=== PATIENT | female | born 1970 | race Caucasian/White ===

== ENCOUNTER 2017-03-08 20:06 | Emergency (ER) | payer OTHER ==
[2017-03-08 20:20] VITALS: BP 105/68; PULSE 63; RESP 18; TEMP 99.7; O2SAT 98
[2017-03-08] MEDS ORDERED: DEXAMETHASONE 4 MG TAB PO ONE (20:45)
[2017-03-08] MEDS ORDERED: AZITHROMYCIN 250 MG TAB PO ONE (20:45)
--- NOTE | 2017-03-08 20:49 | EDPHY ---
H & P Stated Complaint: ST, cough, sinus pressure, bilateral ear ache. Time Seen by Provider: 03/08/17 20:40 HPI/ROS: CHIEF COMPLAINT: Sore throat, sinus congestion, ear pain HISTORY OF PRESENT ILLNESS: Patient is a 46-year-old female who comes to the emergency department complaining of 1 week of sore throat, sinus congestion and ear pain. She states that her symptoms have been progressively worse. She is also developing postnasal drip and cough. His affecting her sleep. Is painful to swallow. No shortness of breath or chest pain. Fevers REVIEW OF SYSTEMS: Constitutional: denies: chills, fever, recent illness, recent injury EENTM: See HPI Respiratory: denies: cough, shortness of breath Cardiac: denies: chest pain, irregular heart rate, lightheadedness, palpitations Gastrointestinal/Abdominal: denies: abdominal pain, diarrhea, nausea, vomiting, blood streaked stools Genitourinary: denies: dysuria, frequency, hematuria, pain Musculoskeletal: denies: joint pain, muscle pain Skin: denies: lesions, rash, jaundice, bruising Neurological: denies: headache, numbness, paresthesia, tingling, dizziness, weakness Hematologic/Lymphatic: denies: blood clots, easy bleeding, easy bruising Immunologic/allergic: denies: HIV/AIDS, transplant EXAM: GENERAL: Well-appearing, well-nourished and in no acute distress. HEAD: Atraumatic, normocephalic. EYES: Pupils equal round and reactive to light, extraocular movements intact, sclera anicteric, conjunctiva are normal. ENT: Bilateral erythematous tympanic membranes, sinus tenderness and congestion , erythematous oropharynx, no exudate, is anterior cervical lymphadenopathy NECK: Normal range of motion, supple without lymphadenopathy or JVD. LUNGS: Breath sounds clear to auscultation bilaterally and equal. No wheezes rales or rhonchi. HEART: Regular rate and rhythm without murmurs, rubs or gallops. ABDOMEN: Soft, nontender, normoactive bowel sounds. No guarding, no rebound. No masses appreciated. BACK: No CVA tenderness, no spinal tenderness, step-offs or deformities EXTREMITIES: Normal range of motion, no pitting or edema. No clubbing or cyanosis. NEUROLOGICAL: Cranial nerves II through XII grossly intact. Normal speech, normal gait. 5 strength, normal movement in all extremities, normal sensation PSYCH: Normal mood, normal affect. SKIN: Warm, dry, normal turgor, no visible rashes or lesions. Source: Patient Exam Limitations: No limitations - Personal History LMP (Females 10-55): 15-21 Days Ago Current Tetanus/Diphtheria Vaccine: Unsure Current Tetanus Diphtheria and Acellular Pertussis (TDAP): Unsure - Medical/Surgical History Hx Asthma: No Hx Chronic Respiratory Disease: No Hx Diabetes: No Hx Cardiac Disease: No Hx Renal Disease: No Hx Cirrhosis: No Hx Alcoholism: No Hx HIV/AIDS: No Hx Splenectomy or Spleen Trauma: No Other PMH: Denies. - Family History Significant Family History: No pertinent family hx - Social History Smoking Status: Never smoked Alcohol Use: Sober Drug Use: None Constitutional: Initial Vital Signs Temperature (C) 37.6 C 03/08/17 20:17 Heart Rate 63 03/08/17 20:17 Respiratory Rate 18 03/08/17 20:17 Blood Pressure 105/68 03/08/17 20:17 O2 Sat (%) 98 03/08/17 20:17 O2 Delivery Mode Room Air Allergies/Adverse Reactions: No Known Allergies Allergy (Unverified 03/08/17 20:20) Home Medications: Medication Instructions Recorded AZITHROMYCIN [Z-PACK] 250 mg PO DAILY #4 tab 03/08/17 Medical Decision Making ED Course/Re-evaluation: Patient has otitis media and probably pharyngitis and sinusitis. I will start her on azithromycin and give her a dose of Decadron tonight. She is happy with this plan and declines further workup or testing at this time. We discussed indications for returning. Differential Diagnosis: Partial list of the Differential diagnosis considered include but were not limited to; sinusitis, otitis media, strep throat, upper respiratory tract infection and although unlikely based on the history and physical exam, I also considered pneumonia, meningitis, sepsis. I discussed these differential diagnoses and the plan with the patient as well as the usual and expected course. The patient understands that the diagnosis is provisional and that in medicine we are not always correct and that further workup is often warranted. Usual and customary warnings were given. All of the patient's questions were answered. The patient was instructed to return to the emergency department should the symptoms at all worsen or return, otherwise to followup with the physician as we discussed. - Data Points Medications Given: Discontinued Medications Azithromycin (Zithromax) 500 mg PO EDNOW ONE PRN Reason: Protocol Stop: 03/08/17 20:46 Last Admin: 03/08/17 20:54 Dose: 500 mg Dexamethasone (Decadron) 10 mg PO EDNOW ONE Stop: 03/08/17 20:46 Last Admin: 03/08/17 20:54 Dose: 10 mg Sodium Chloride (Ns) 1,000 mls @ 0 mls/hr IV ONCE ONE PRN Reason: Wide Open Stop: 03/08/17 20:56 Last Admin: 03/08/17 20:56 Dose: 1,000 mls Departure - Departure Disposition: Home, Routine, Self-Care Clinical Impression: Otitis media Qualifiers: Otitis media type: suppurative Laterality: bilateral Chronicity: acute Recurrence: not specified as recurrent Spontaneous tympanic membrane rupture: without spontaneous rupture Qualified Code(s): H66.003 - Acute suppurative otitis media without spontaneous rupture of ear drum, bilateral Sinusitis Qualifiers: Sinusitis location: maxillary Chronicity: acute Recurrence: non-recurrent Qualified Code(s): J01.00 - Acute maxillary sinusitis, unspecified Condition: Fair Instructions: Sinusitis (ED), Otitis Media (ED) Referrals: NONE *PRIMARY CARE P,. [Primary Care Provider] - As per Instructions Viri Bellamy MD [[facility] [place] Primary Care Provider] - As per Instructions Prescriptions: AZITHROMYCIN [Z-PACK] 250 mg PO DAILY #4 tab
[2017-03-08] MEDS ORDERED: NS 1,000 ML IV ONE (20:55)
== END 2017-03-08 21:00 | disposition home or self-care (01) ==
LOC: CED 20:06
DX: J01.00 Acute maxillary sinusitis, unspecified (principal); H66.003 Acute suppurative otitis media without spontaneous rupture of ear drum, bilateral